=== PATIENT | female | born 1980 | race Two or more races ===

== ENCOUNTER 2018-04-15 12:14 | Outpatient (CLI) | payer OTHER | END 2018-04-15 12:17 | disposition home or self-care (01) | LOC: SONOGRAMA 12:14 | DX: D25.1 Intramural leiomyoma of uterus (principal); N83.00 Follicular cyst of ovary, unspecified side ==

== ENCOUNTER 2019-08-17 11:16 | Emergency (ER) | payer OTHER ==
[~2019-08-17] VITALS: Ht 162.6 cm; Wt 67.6 kg
== END 2019-08-17 14:27 | disposition home or self-care (01) ==
LOC: ER 11:16
DX: O46.8X1 Other antepartum hemorrhage, first trimester (principal)